=== PATIENT | male | born 1995 | race Caucasian/White ===

== ENCOUNTER 2017-03-17 18:51 | Emergency (ER) | payer BC ==
[~2017-03-17] VITALS: Ht 175.3 cm; Wt 80.0 kg
[2017-03-17 18:53] VITALS: BP 148/72; PULSE 122; RESP 16; TEMP 100.9; O2SAT 97
[2017-03-17] MEDS ORDERED: SODIUM CHLOR 0.9% 1000 ML INJ 1,000 ML IV SCH (19:21)
--- NOTE | 2017-03-17 19:29 | PD ---
HPI Chief Complaint: GI Complaint Time Seen by Provider: 19:20 Travel History International Travel<30 days: No Contact w/Intl Traveler<30days: No Traveled to known affect area: No History of Present Illness HPI Patient denies any knowledge of any other sick contacts. However developed nausea with vomiting early this morning about 4 AM. Vomiting in some minor abdominal cramping along with diarrhea has been going on since about 10 AM Anding symptoms have not resolved or improved throughout the day. Patient has some concern because he has not been able to keep down any liquids. Allergies: Patient states latex lidocaine developed swelling Past medical history: Denies Past surgical history: Only significant for dental Primary care physician none PFSH Past Medical History Medical History: Denies Significant Hx Tetanus Vaccination: < 5 Years Influenza Vaccination: No Past Surgical History Surgical History: No Previous Surgery Social History Alcohol Use: Yes (occ) Tobacco Use: No Substance Use: No Allergies-Medications (Allergen,Severity, Reaction): Coded Allergies: latex (Verified Allergy, Unknown, 03/17/17) Review of Systems Except as stated in HPI: all other systems reviewed are Neg General / Constitutional: No: Fever Eyes: No: Visual changes HENT: No: Headaches Cardiovascular: No: Chest Pain or Discomfort Respiratory: No: Shortness of Breath Gastrointestinal: Positive: Nausea, Vomiting, Diarrhea, Abdominal Pain Genitourinary: No: Dysuria Musculoskeletal: No: Pain Skin: No Rash Neurologic: No: Weakness Psychiatric: No: Depression Endocrine: No: Polydipsia Hematologic/Lymphatic: No: Easy Bruising Physical Exam Narrative GENERAL: Well-nourished, well-developed patient in no apparent distress. SKIN: Warm and dry. HEAD: Atraumatic. Normocephalic. EYES: Pupils equal and round. No scleral icterus. No injection or drainage. ENT: No nasal bleeding or discharge. Mucous membranes pink and moist. NECK: Trachea midline. No JVD. CARDIOVASCULAR: Regular rate and rhythm. no rubs or gallops RESPIRATORY: No accessory muscle use. Clear to auscultation. Breath sounds equal bilaterally. GASTROINTESTINAL: Abdomen soft, non-tender, nondistended. No rebound or guarding MUSCULOSKELETAL: Extremities without clubbing, cyanosis, or edema. No obvious deformities. NEUROLOGICAL: Awake and alert. No obvious cranial nerve deficits. Motor grossly within normal limits. Five out of 5 muscle strength in the arms and legs. Normal speech. PSYCHIATRIC: Appropriate mood and affect; insight and judgment normal. Data Data Last Documented VS Vital Signs Date Time Temp Pulse Resp B/P (MAP) Pulse Ox O2 Delivery O2 Flow Rate FiO2 03/17/17 19:56 18 03/17/17 19:55 100 Room Air 03/17/17 19:55 107 03/17/17 18:53 100.9 Orders Orders Complete Blood Count With Diff (03/17/17 19:21) Comprehensive Metabolic Panel (03/17/17 19:21) Lipase (03/17/17 19:21) Iv Access Insert/Monitor (03/17/17 19:21) Ecg Monitoring (03/17/17 19:21) Oximetry (03/17/17 19:21) NPO (03/17/17 19:21) Ondansetron Inj (Zofran Inj) (03/17/17 19:30) Sodium Chlor 0.9% 1000 Ml Inj (Ns 1000 M (03/17/17 19:21) Sodium Chloride 0.9% Flush (Ns Flush) (03/17/17 19:30) Influenzae A/B Antigen (03/17/17 19:21) Labs Laboratory Tests Test 03/17/17 19:45 White Blood Count 12.9 TH/MM3 Red Blood Count 5.60 MIL/MM3 Hemoglobin 16.0 GM/DL Hematocrit 47.8 % Mean Corpuscular Volume 85.3 FL Mean Corpuscular Hemoglobin 28.6 PG Mean Corpuscular Hemoglobin Concent 33.5 % Red Cell Distribution Width 13.1 % Platelet Count 175 TH/MM3 Mean Platelet Volume 9.5 FL Neutrophils (%) (Auto) 92.1 % Lymphocytes (%) (Auto) 2.2 % Monocytes (%) (Auto) 5.5 % Eosinophils (%) (Auto) 0.0 % Basophils (%) (Auto) 0.2 % Neutrophils # (Auto) 11.9 TH/MM3 Lymphocytes # (Auto) 0.3 TH/MM3 Monocytes # (Auto) 0.7 TH/MM3 Eosinophils # (Auto) 0.0 TH/MM3 Basophils # (Auto) 0.0 TH/MM3 CBC Comment DIFF FINAL Differential Comment Blood Urea Nitrogen 20 MG/DL Creatinine 1.14 MG/DL Random Glucose 110 MG/DL Total Protein 7.7 GM/DL Albumin 4.3 GM/DL Calcium Level 9.0 MG/DL Alkaline Phosphatase 106 U/L Aspartate Amino Transf (AST/SGOT) 16 U/L Alanine Aminotransferase (ALT/SGPT) 35 U/L Total Bilirubin 1.0 MG/DL Sodium Level 135 MEQ/L Potassium Level 4.0 MEQ/L Chloride Level 101 MEQ/L Carbon Dioxide Level 23.8 MEQ/L Anion Gap 10 MEQ/L Estimat Glomerular Filtration Rate 81 ML/MIN Lipase 90 U/L [facility] Medical Decision Making Medical Screen Exam Complete: Yes Emergency Medical Condition: Yes Medical Record Reviewed: Yes Differential Diagnosis Flu versus spiral syndrome versus bacterial gastroenteritis versus pancreatitis versus liver/kidney dysfunction versus electrolyte abnormality Narrative Course Upon evaluation of the patient's laboratories the patient this showed some mild leukocytosis with neutrophilia which suggest a bacterial source to his gastroenteritis. Diagnosis Primary Impression: Acute gastroenteritis Patient Instructions: Gastroenteritis (DC), General Instructions Scripts Metronidazole (Flagyl) 500 Mg Tab 500 MG PO TID for Infection for 7 Days, #21 TAB 0 Refills Prov: Gorge Valderrama MD 03/17/17 Ciprofloxacin (Cipro) 500 Mg Tab 500 MG PO BID for Infection for 5 Days, #10 TAB 0 Refills Prov: Gorge Valderrama MD 03/17/17 Ondansetron Odt (Zofran Odt) 4 Mg Tab 4 MG SL Q6HR Y for Nausea/Vomiting, #20 TAB 0 Refills Prov: Gorge Valderrama MD 03/17/17 Disposition: 01 DISCHARGE HOME Condition: Stable Gorge Valderrama MD Mar 17, 2017 19:29
[2017-03-17] MEDS ORDERED: SODIUM CHLORIDE 0.9% FLUSH 10 ML FLUSH IV FLUSH PRN (19:30)
[2017-03-17] MEDS ORDERED: ONDANSETRON HCL 4 MG/2 ML VIAL IVP ONE (19:30)
[2017-03-17 19:55] VITALS: BP 147/65; PULSE 107; RESP 18; O2SAT 100
[2017-03-17 20:00] LABS: AUTOMATED NEUTROPHIL # 11.9 TH/MM3 (1.8-7.7); BASOPHIL % 0.2 % (0.0-2.0); HEMATOCRIT 47.8 % (39.0-51.0); LYMPH % 2.2 % (9.0-44.0); LYMPHOCYTE # 0.3 TH/MM3 (1.0-4.8); MEAN CELL VOLUME 85.3 FL (80.0-100.0); MEAN CORPUSCULAR HEMOGLOBIN 28.6 PG (27.0-34.0); MEAN CORPUSCULAR HGB CONC 33.5 % (32.0-36.0); MEAN PLATELET VOLUME 9.5 FL (7.0-11.0); MONO % 5.5 % (0.0-8.0); MONOCYTE # 0.7 TH/MM3 (0-0.9); NEUT % 92.1 % (16.0-70.0); PLATELET COUNT 175 TH/MM3 (150-450); RED CELL DISTRIBUTION WIDTH 13.1 % (11.6-17.2); WHITE BLOOD COUNT 12.9 TH/MM3 (4.0-11.0)
[2017-03-17 20:08] LABS: ALBUMIN 4.3 GM/DL (3.4-5.0); ALT (GPT) 35 U/L (12-78); AST (GOT) 16 U/L (15-37); BICARBONATE 23.8 MEQ/L (21.0-32.0); BLOOD UREA NITROGEN 20 MG/DL (7-18); CHLORIDE 101 MEQ/L (98-107); CREATININE 1.14 MG/DL (0.60-1.30); GLOMERULAR FILTRATION RATE 81 ML/MIN (>89); GLUCOSE,RANDOM 110 MG/DL (74-106); LIPASE 90 U/L (73-393); SODIUM (NA) 135 MEQ/L (136-145)
[2017-03-17 20:11] LABS: ALKALINE PHOSPHATASE 106 U/L (45-117); TOTAL PROTEIN 7.7 GM/DL (6.4-8.2)
[2017-03-17] MEDS ORDERED: ZOFR4TAB3 SL (20:26)
[2017-03-17] MEDS ORDERED: METR-1 PO (20:26)
[2017-03-17] MEDS ORDERED: CIPR-9 PO (20:26)
== END 2017-03-17 20:45 | disposition home or self-care (01) ==
LOC: NEPE 18:51
DX: K52.9 Noninfective gastroenteritis and colitis, unspecified (principal); D72.829 Elevated white blood cell count, unspecified
CPT/HCPCS: 80053; 83690; 85025; 87804; 96361; 96374; 99284; J2405; J7030